=== PATIENT | female | born 1955 | race Caucasian/White ===

== ENCOUNTER 2018-06-22 15:57 | Inpatient (IN) | payer OTHER ==
[2018-06-22] MEDS ORDERED: ONDANSETRON DISINTEGRATING 4 MG TAB ONE (16:19)
[2018-06-22] MEDS ORDERED: ONDANSETRON DISINTEGRATING 4 MG TAB PO ONE (16:24)
[2018-06-22] MEDS ORDERED: NS 500 ML IV ONE (16:28)
--- NOTE | 2018-06-22 16:34 | EDPHY ---
H & P Time Seen by Provider: 06/22/18 16:07 HPI/ROS: CHIEF COMPLAINT: Fall from horse HISTORY OF PRESENT ILLNESS: Patient is a 63-year-old female presents emergency department after being thrown from her horse. She complains of right buttock ( sacral) pain and right lateral posterior chest pain. Her pain is moderate to severe. Patient states that hurts to take a breath. She denies striking her head or losing consciousness. Patient has had nausea. No neck or thoracic back pain. She denies any lumbar pain. Patient was able to bear weight after the fall. No numbness, tingling or weakness. REVIEW OF SYSTEMS: 10 systems were reveiwed and are negative with the exception of the elements mentioned in the history of present illness. Past Medical/Surgical History: Includes lymphoma, breast cancer, kidney stones Past surgical history: Rib resection for metastatic disease, mastectomy Social history: Patient does not smoke Smoking Status: Never smoked Physical Exam: Vitals noted GENERAL: Moderate acute distress, alert. HEAD: No evidence of trauma. EYES: PERRLA, EOMI, normal to inspection. ENT: Airway intact, no dental or oral injury, no malocclusion, no hemotympanum , normal external examination. NECK: The trachea is midline. There is no crepitus. The C-spine is nontender. NEXUS criteria is negative (no midline tenderness, no distracting injury, no altered mental status, no recent alcohol use, no focal neurologic deficit). RESPIRATORY: [Clear to auscultation bilaterally, no rales, rhonchi or wheezing. Chest wall: Normal to appearance. No crepitance or deformity. CVS: Regular rate and rhythm, no rubs, murmurs, or gallops. ABDOMEN: Soft, nontender, nondistended, no bruising or abrasions. Pelvis: Stable. Right lateral posterior tenderness to palpation with no crepitus or deformity. BACK: Normal to inspection, no spinal tenderness, no spinal step off, no notable bruising or abrasions. SKIN: Normal color, warm, dry. No pallor or diaphoresis. EXTREMITIES: Atraumatic, neurovascularly intact distally in all extremities, hips with full range of motion, moves all extremities freely. NEURO/PSYCH: Alert and oriented x 3, GCS 15, normal mood and affect, normal motor sensory exam. Constitutional: Initial Vital Signs Temperature (C) 36.5 C 06/22/18 16:00 Heart Rate 83 06/22/18 16:00 Respiratory Rate 20 06/22/18 16:00 Blood Pressure 109/57 L 06/22/18 16:00 O2 Sat (%) 93 06/22/18 16:00 O2 Delivery Mode Room Air Allergies/Adverse Reactions: No Known Allergies Allergy (Unverified 06/22/18 16:00) Home Medications: Medication Instructions Recorded NK [No Known Home Meds] 06/22/18 Medical Decision Making - Diagnostics Imaging Results: Imaging Impressions Chest CT 06/22/18 16:28 Impression: 1. Small to moderate right pneumothorax and small right pleural effusion. 2. Right lower lobe atelectasis versus pulmonary contusion. 3. Acute posterolateral right eighth and ninth rib fractures. 4. No acute thoracic spine or sternal fracture. 5. No evidence of acute aortic injury. 6. Left lung scarring and left fifth and sixth rib deformities are likely secondary to previous surgery and radiation therapy. Findings discussed with Emergency Department physician, Dr. Dulce Albarado on June 22, 2018 at 1820 hours. Procedures: Procedure: Trauma ultrasound. Limited echocardiogram for pericardial effusion. Limited bedside ultrasound was performed and interpreted by myself for the indication of: thoracoabdominal trauma utilizing the thoracoabdominal emergency ultrasound protocol. Limited transthoracic echocardiogram: The pericardium was visualized and found to be negative for pericardial fluid. The study was negative for pericardial effusion. Limited abdominal ultrasound for blunt abdominal trauma. 1) The right upper quadrant was visualized and was found to be negative for intraperitoneal fluid. 2) The left upper quadrant was visualized and found to be negative for intraperitoneal fluid. The study was felt to be negative for free intraperitoneal fluid. Limited pelvic ultrasound was conducted for abdominal trauma. The bladder was visualized and did not reveal an anechoic area outside of the adjacent urinary bladder. The study was felt to be negative for free intraperitoneal fluid. ED Course/Re-evaluation: In the emergency department I discussed possible etiologies with the patient and . I answered all her questions. Patient was given oral Zofran while waiting for an IV line. Bedside fast exam: Negative Patient was given fentanyl IV for pain control. CT of the chest: Please refer the dictated report by Dr. Hernandez. The patient has an 8th and 9 rib fracture. There is also a right-sided pneumothorax. CT of the abdomen pelvis: Please refer the dictated report by Dr. Hernandez. The patient has no intra-abdominal fluid. There is no viscus or organ injury. Patient pelvis appears normal but the study is limited due to the imaging technique. Dr. Hernandez recommended the patient come back over the CT imaging to complete the study. I discussed the results thus far with the patient and . I answered all her questions. She is aware that we need to repeat the imaging. I discussed the case with Dr. Riggs from [facility]. He will evaluate the patient. Discussed case with [facility]. The patient will be observed overnight at [facility]. 1939: I rechecked the patient. Pain was controlled. She had no new shortness of breath. Patient is awaiting chest tube placement by Dr. Riggs. He states he would be in the emergency department in the 30-40 min. 2024: I rechecked the patient. No shortness of breath. Awaiting Dr. Riggs. 2199: Patient is stable. Differential Diagnosis: My differential includes but is not limited to pelvic fracture, hip fracture, hip dislocation, spinal injury, rib fracture, pneumothorax, hemothorax, viscus injury, liver injury, closed-head injury - Data Points Laboratory Results: Laboratory Results 06/22/18 16:35 06/22/18 16:35 06/22/18 06/22/18 06/22/18 16:35 16:35 16:35 WBC 10.07 10^3/uL H 10^3/uL (3.80-9.50) RBC 4.22 10^6/uL 10^6/uL (4.18-5.33) Hgb 13.9 g/dL g/dL (12.6-16.3) POC Hgb Hct 40.8 % % (38.0-47.0) POC Hct MCV 96.7 fL fL (81.5-99.8) MCH 32.9 pg pg (27.9-34.1) MCHC 34.1 g/dL g/dL (32.4-36.7) RDW 12.4 % % (11.5-15.2) Plt Count 309 10^3/uL 10^3/uL (150-400) MPV 9.6 fL fL (8.7-11.7) Neut % (Auto) 75.2 % H % (39.3-74.2) Lymph % (Auto) 17.0 % % (15.0-45.0) Davie % (Auto) 6.2 % % (4.5-13.0) Eos % (Auto) 0.6 % % (0.6-7.6) Baso % (Auto) 0.5 % % (0.3-1.7) Nucleat RBC Rel Count 0.0 % % (0.0-0.2) Absolute Neuts (auto) 7.58 10^3/uL H 10^3/uL (1.70-6.50) Absolute Lymphs (auto) 1.71 10^3/uL 10^3/uL (1.00-3.00) Absolute Monos (auto) 0.62 10^3/uL 10^3/uL (0.30-0.80) Absolute Eos (auto) 0.06 10^3/uL 10^3/uL (0.03-0.40) Absolute Basos (auto) 0.05 10^3/uL 10^3/uL (0.02-0.10) Absolute Nucleated RBC 0.00 10^3/uL 10^3/uL (0-0.01) Immature Gran % 0.5 % % (0.0-1.1) Immature Gran # 0.05 10^3/uL 10^3/uL (0.00-0.10) PT 12.4 SEC SEC (12.0-15.0) INR 0.96 (0.83-1.16) APTT 23.8 SEC SEC (23.0-38.0) POC Sodium Sodium 136 mEq/L mEq/L (135-145) POC Potassium Potassium 3.9 mEq/L mEq/L (3.5-5.2) POC Chloride Chloride 104 mEq/L mEq/L (97-110) Carbon Dioxide 25 mEq/l mEq/l (22-31) POC Total CO2 Anion Gap 7 mEq/L mEq/L (6-14) POC BUN BUN 26 mg/dL H mg/dL (7-23) Creatinine 0.9 mg/dL mg/dL (0.6-1.0) POC Creatinine Estimated GFR > 60 Glucose 125 mg/dL H mg/dL (70-100) POC Glucose Calcium 10.1 mg/dL mg/dL (8.5-10.4) 06/22/18 16:30 WBC RBC Hgb POC Hgb 14.6 gm/dL gm/dL (12.6-16.3) Hct POC Hct 43 % % (38-47) MCV MCH MCHC RDW Plt Count MPV Neut % (Auto) Lymph % (Auto) Davie % (Auto) Eos % (Auto) Baso % (Auto) Nucleat RBC Rel Count Absolute Neuts (auto) Absolute Lymphs (auto) Absolute Monos (auto) Absolute Eos (auto) Absolute Basos (auto) Absolute Nucleated RBC Immature Gran % Immature Gran # PT INR APTT POC Sodium 142 mEq/L mEq/L (135-145) Sodium POC Potassium 3.6 mEq/L mEq/L (3.3-5.0) Potassium POC Chloride 103 mEq/L mEq/L (97-110) Chloride Carbon Dioxide POC Total CO2 28 mEq/L mEq/L (22-31) Anion Gap POC BUN 25 mg/dL H mg/dL (7-23) BUN Creatinine POC Creatinine 0.9 mg/dL mg/dL (0.6-1.0) Estimated GFR Glucose POC Glucose 122 mg/dL H mg/dL (70-100) Calcium Medications Given: Hydromorphone HCl (Dilaudid) 0.2 - 0.4 mg IVP Q1H PRN PRN Reason: Pain, Severe Unable to Take PO Stop: 07/02/18 19:44 Last Admin: 06/22/18 21:25 Dose: 0.4 mg Discontinued Medications Fentanyl (Sublimaze) 100 mcg IVP EDNOW ONE Stop: 06/22/18 16:53 Last Admin: 06/22/18 16:55 Dose: 100 mcg Fentanyl (Sublimaze) 100 mcg IVP EDNOW ONE Stop: 06/22/18 19:14 Last Admin: 06/22/18 19:14 Dose: 100 mcg Sodium Chloride (Ns) 500 mls @ 0 mls/hr IV ONCE ONE; Wide Open PRN Reason: Protocol Stop: 06/22/18 16:29 Last Admin: 06/22/18 16:37 Dose: 500 mls Ondansetron HCl (Zofran Odt) 4 mg PO EDNOW ONE Stop: 06/22/18 16:25 Last Admin: 06/22/18 16:25 Dose: 4 mg Point of Care Test Results: Chemistry 06/22/18 16:30 POC Sodium 142 mEq/L mEq/L (135-145) POC Potassium 3.6 mEq/L mEq/L (3.3-5.0) POC Chloride 103 mEq/L mEq/L (97-110) POC Total CO2 28 mEq/L mEq/L (22-31) POC BUN 25 mg/dL H mg/dL (7-23) POC Creatinine 0.9 mg/dL mg/dL (0.6-1.0) POC Glucose 122 mg/dL H mg/dL (70-100) ISTAT H&H 06/22/18 16:30 POC Hgb 14.6 gm/dL gm/dL (12.6-16.3) POC Hct 43 % % (38-47) Departure - Departure Disposition: [facility] Inpatient Acute Clinical Impression: Pneumothorax on right Rib fracture Qualifiers: Encounter type: initial encounter Rib fracture type: multiple ribs Fracture type: closed Laterality: right Qualified Code(s): S22.41XA - Multiple fractures of ribs, right side, initial encounter for closed fracture Condition: Good
[2018-06-22 16:51] LABS: PLATELET COUNT 309 10^3/uL (150-400)
[2018-06-22] MEDS ORDERED: fentaNYL 100 MCG/2 ML INJ IVP ONE ×2 (16:52→19:13)
[2018-06-22] MEDS ORDERED: IOPAMIDOL (ISOVUE-300) 100 ML BTL ONE (17:01)
[2018-06-22 17:25] LABS: INR 0.96 (0.83-1.16); PROTIME(PATIENT) 12.4 SEC (12.0-15.0)
[2018-06-22] MEDS ORDERED: fentaNYL 100 MCG/2 ML INJ ONE (19:09)
[2018-06-22] MEDS ORDERED: ONDANSETRON DISINTEGRATING 4 MG TAB PO PRN (19:33)
[2018-06-22] MEDS ORDERED: HYDROmorphONE/DILAUDID 1 MG/ML INJ IVP PRN (19:45)
[2018-06-22] MEDS ORDERED: LR 1,000 ML IV SCH (20:00)
[2018-06-22] MEDS: ONDANSETRON 4 MG/2 ML VIAL IVP PRN (22:17)
[2018-06-22] MEDS: LIDOCAINE 4%/MENTHOL 1% PATCH TD SCH (22:29)
[2018-06-22] MEDS: ACETAMINOPHEN 500 MG TAB PO SCH (22:30)
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
--- NOTE | 2018-06-22 23:27 | GOP ---
[f rep st] OPERATIVE REPORT DATE OF OPERATION: 06/22/2018 SURGEON: Real Riggs MD PREOPERATIVE DIAGNOSIS: Fracture of right ribs 8 and 9 with hemopneumothorax ( approximately 30%). POSTOPERATIVE DIAGNOSIS: Fracture of right ribs 8 and 9 with hemopneumothorax ( approximately 30%). PROCEDURE PERFORMED: Placement of a 28-Croatian straight chest tube. FINDINGS: Fracture of right ribs 8 and 9 with hemopneumothorax (approximately 30%). INDICATIONS: Fracture of right ribs 8 and 9 with hemopneumothorax ( approximately 30%). DESCRIPTION OF PROCEDURE: The patient was placed in the left lateral decubitus position. Her right arm was elevated above her head. The chest wall was prepped with ChloraPrep and when appropriate draped. At approximately the level of the 5th rib the skin was carefully anesthetized. The subcutaneous tissue and the intercostal space were anesthetized. She had received Dilaudid IV. The skin was carefully incised. A spreading technique was used to expose tissue down to the level of the rib. Dissection was taken over the superior surface of the rib. The chest was entered. A careful finger swipe was used to make sure there was no attached lung. The chest tube was carefully passed. It was secured at the skin level with vertical mattress sutures of #2-0 silk. A second suture was used to complete the closure of the incision. Chest tube was connected to Water Seal which was subsequently connected to 20 cm vacuum. Approximately 60 cc of blood were immediately obtained. Chest x-ray showed almost complete re-expansion. Tube was in good position. A sterile dressing had been applied. The patient will be transferred to the floor. /[id number]/MODL MTDD
[2018-06-22] MEDS: KETOROLAC 15 MG/1 ML SDV IVP SCH (23:37)
[2018-06-23] MEDS: ACETAMINOPHEN 500 MG TAB PO SCH ×3 (03:27→21:17)
[2018-06-23] MEDS: CYCLOBENZAPRINE 10 MG TAB PO PRN ×2 (03:28→22:32)
[2018-06-23] MEDS: KETOROLAC 15 MG/1 ML SDV IVP SCH ×4 (05:22→23:32)
--- NOTE | 2018-06-23 07:26 | PDMN ---
Medical Necessity Medical necessity: Pt meets inpt criteria per MD order and MCG M-545, Rib Fracture. 63 y/o s/p fall from horse admitted w/2 rib fractures and hemopneumothorax requiring chest tube placement. Ext stay anticipated for rib fx 's w/need for CT drainage and pain management.
[2018-06-23] MEDS: LIDOCAINE 4%/MENTHOL 1% PATCH TD SCH (09:43)
[2018-06-23] MEDS: ENOXAPARIN 40 MG/0.4 ML SYR SC SCH (09:43)
--- NOTE | 2018-06-23 09:57 | TRAUMAPNT ---
Trauma Tertiary Progress Note New Findings: No new findings Assessment/Plan: 06/23/2018 PAD#1 Assessment: Doing well. Pain under better control. No air leak, No E to A changes. Trace apical PTX Plan: If no air leak at 24 hours (this evening) will stop suction Subjective: My pain was under partial control last night Objective: Vital Signs Temp Pulse Resp BP Pulse Ox 36.6 C 72 16 98/51 L 96 06/23/18 07:39 06/23/18 07:39 06/23/18 07:39 06/23/18 07:39 06/23/18 07:39 06/22/18 06/23/18 06/24/18 05:59 05:59 05:59 Intake Total 1280 Output Total 120 Balance 1160 PT 12.4 SEC (12.0-15.0) 06/22/18 16:35 INR 0.96 (0.83-1.16) 06/22/18 16:35 - C-Spine Clearance Cervical Spine Cleared: Yes Physical Exam - Physical Exam General Appearance: WD/WN, alert, mild distress Respiratory: chest non-tender, lungs clear (No E to E changes, No air leak in chest tube, 20cc out overnight), normal breath sounds Cardiac/Chest: regular rate, rhythm Abdomen: non-tender, soft Pelvic Exam: deferred Rectal: deferred Back: Normal inspection Skin: normal color, warm/dry Extremities: normal range of motion, non-tender, normal inspection Neuro/Psych: no motor/sensory deficits, alert, normal mood/affect, oriented x 3 Time Spent w/Patient (minutes): 15
[2018-06-23] MEDS ORDERED: SENNOSIDES 1 TAB PO PRN (09:58)
[2018-06-23] MEDS: ONDANSETRON 4 MG/2 ML VIAL IVP PRN (17:42)
[2018-06-23] MEDS: PATCH REMOVAL 1 EA PATCH TD SCH (21:18)
[2018-06-24] MEDS: ACETAMINOPHEN 500 MG TAB PO SCH ×3 (04:01→19:41)
[2018-06-24] MEDS: KETOROLAC 15 MG/1 ML SDV IVP SCH ×4 (05:43→23:55)
[2018-06-24] MEDS: ENOXAPARIN 40 MG/0.4 ML SYR SC SCH (09:15)
[2018-06-24] MEDS: LIDOCAINE 4%/MENTHOL 1% PATCH TD SCH (09:15)
--- NOTE | 2018-06-24 09:45 | TRAUMAPN ---
Trauma Progress Note Assessment/Plan: 63yo F s/p fall from horse c R8-9 rib fx, hemopneumo s/p CT placement - VSS, HDs - pain is controlled - CXR today shows very small residual ptx, no air leak. Will leave CT another day - PT/OT, ambulate - anticipate home tomorrow after CT removal Subjective: feels well, pain controlled Objective: Vital Signs Temp Pulse Resp BP Pulse Ox 37.0 C 71 16 101/60 94 06/24/18 07:59 06/24/18 07:59 06/24/18 07:59 06/24/18 07:59 06/24/18 07:59 06/23/18 06/24/18 06/25/18 05:59 05:59 05:59 Intake Total 1280 2000 Output Total 120 1423 Balance 1160 577 PT 12.4 SEC (12.0-15.0) 06/22/18 16:35 INR 0.96 (0.83-1.16) 06/22/18 16:35 - C-Spine Clearance Cervical Spine Cleared: Yes
--- NOTE | 2018-06-24 15:12 | ASMTCAGE ---
CAGE Do you feel you ought to Answers: Yes cut down on your drinking or drug use? Do people annoy you by Answers: No criticizing your drinking or drug use? Do you feel guilty about Answers: No your drinking or drug use? 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 Date Signed: 06/24/2018 03:11 PM Electronically Signed By:Bernie White RN
--- NOTE | 2018-06-24 15:20 | ASMTCMCOM ---
CM Note CM Note Notes: Met with patient and friend to discuss disposition needs. Patient will likely be able to d/c tomorrow once medically cleared. No needs identified at this time, therapy has evaluated and cleared for home. CAGE screen complete. CM available should needs arise. Plan: Independent Date Signed: 06/24/2018 03:20 PM Electronically Signed By:Bernie White RN
[2018-06-24] MEDS: PATCH REMOVAL 1 EA PATCH TD SCH (22:37)
[2018-06-24] MEDS: CYCLOBENZAPRINE 10 MG TAB PO PRN (22:37)
[2018-06-25] MEDS: HYDROmorphONE/DILAUDID 2 MG TAB PO PRN ×2 (01:06→01:39)
[2018-06-25] MEDS: ACETAMINOPHEN 500 MG TAB PO SCH ×2 (05:08→10:45)
[2018-06-25] MEDS: KETOROLAC 15 MG/1 ML SDV IVP SCH ×2 (05:21→11:22)
[2018-06-25] MEDS: LIDOCAINE 4%/MENTHOL 1% PATCH TD SCH (08:42)
[2018-06-25] MEDS: ENOXAPARIN 40 MG/0.4 ML SYR SC SCH (08:42)
--- NOTE | 2018-06-25 08:42 | SOAPPROG ---
SOAP Progress Note Assessment/Plan: Assessment: Plan: Subjective: feels pretty good no air leak- chest tube dc'd, despite small residual pneumo on cxr. will check film prior to dc in sevral hours. right gluteal mmorell lavolee lesion- fairly small- will follow as outpt. lungs clear, abd soft. Objective: Vital Signs Temp Pulse Resp BP Pulse Ox 36.8 C 68 16 92/54 L 99 06/25/18 04:00 06/25/18 04:00 06/25/18 04:00 06/25/18 04:00 06/25/18 04:00 06/24/18 06/25/18 06/26/18 05:59 05:59 05:59 Intake Total 2000 Output Total 1423 64 Balance 577 -64 PT 12.4 SEC (12.0-15.0) 06/22/18 16:35 INR 0.96 (0.83-1.16) 06/22/18 16:35 ICD10 Worksheet Patient Problems: Problems Problem Status Onset Pneumothorax on right Acute Rib fracture Acute
[2018-06-25 11:41] VITALS: BP 101/58
--- NOTE | 2018-06-25 16:06 | GDS ---
[f rep st] DISCHARGE SUMMARY HISTORY OF PRESENT ILLNESS: Patient was involved in a fall from a horse, landing on the posterior est. She sustained 2 right rib fractures, a small pneumothorax, which was treated with a chest tube, as well as a modest Mendoza-Maria T lesion in the right lower back area. Chest tube has been removed . At the time of discharge, there was a very small persistent apical pneumothorax, which is not expa nding. The Mendoza-Maria T lesion is not particularly big. She will be followed up in the office. FINAL DIAGNOSES: Right rib fractures, right pneumothorax, right Mendoza-Maria T lesion. DISPOSITION: Home. DISCHARGE INSTRUCTIONS/FOLLOWUP: Follow up with Dr. Foss next week. Leave the chest tube remov al dressing site on for at least 72 hours. /[id number]/MODL
== END 2018-06-25 15:59 | disposition home or self-care (01) | DRG 200 ==
LOC: OBSVTOIN 19:48 → F3E 22:07
PROVIDERS: ADMIT Surgery; ATTEND Surgery
PROC: 0W9930Z Drainage of Right Pleural Cavity with Drainage Device, Percutaneous Approach (ICD-10-PCS; principal; 2018-06-22)
DX: S27.2XXA Traumatic hemopneumothorax, initial encounter (principal); S22.41XA Multiple fractures of ribs, right side, initial encounter for closed fracture; V80.010A Animal-rider injured by fall from or being thrown from horse in noncollision accident, initial encounter; Y93.52 Activity, horseback riding; E86.9 Volume depletion, unspecified; Z85.3 Personal history of malignant neoplasm of breast
CPT/HCPCS: 82435-PO; 82565-PO; 82947-PO; 84132-PO; 84295-PO; 84520-PO; 85014-ER; 92523-GN; 96374; 97116-GP; 97161-GP; 97165-GO; 97535-GO; J1170; J1650; J1885; J2405; J3010; Q9967